=== PATIENT | female | born 1955 | race Caucasian/White ===

== ENCOUNTER 2016-12-25 17:58 | Emergency (ER) | payer BC | END 2016-12-25 18:54 | disposition home or self-care (01) | LOC: ER 17:58 | PROC: 0HQFXZZ Repair Right Hand Skin, External Approach (ICD-10-PCS; principal; 2016-12-25) | DX: S61.011A Laceration without foreign body of right thumb without damage to nail, initial encounter (principal); I10 Essential (primary) hypertension; Y28.9XXA Contact with unspecified sharp object, undetermined intent, initial encounter | CPT/HCPCS: 73130-RT; 90471; 90714; 99284 ==